=== PATIENT | female | born 1950 | race Caucasian/White ===

== ENCOUNTER → 2016-07-13 | Day surgery (SDC) | payer MEDICARE ==
[~2016-07-13] MED LIST: BUPR100T4 PO; BUPR150T3 PO; FLUO20SO3 PO; GLUCTAB PO; HYDR-3111 PO; LACTATED RINGER'S 1000 ML INJ 1,000 ML ONE; LEVO.075 PO; LEVO75TA3 PO; METF500T PO; OMEP20TA PO; PERC5TAB12 PO; PRIL20CA PO; PROP20TA3 PO; PROP40TA27 PO; PROPOFOL 500 MG/50 ML BTL IV ONE; PROZ20CA11 PO
== END | disposition home or self-care (01) ==
LOC: ESDC 07:51
PROVIDERS: ATTEND Internal Medicine Gastroenterology
DX: R19.7 Diarrhea, unspecified (principal)
CPT/HCPCS: 00740; 00810; 43239; 45380; 88305; J3010; J7120

== ENCOUNTER → 2016-10-26 | Day surgery (SDC) | payer MEDICARE ==
[~2016-10-26] MED LIST changes: +ACETAMINOPHEN 1000 MG/100 ML VIAL IV ONE; +BUPIVACAINE/EPINEPHRINE 0.5% 50 ML VIAL ONE; +BUPIVACAINE/EPINEPHRINE 0.5% PF 10 ML VIAL ONE; +HEPARIN SODIUM - IV 10,000 UNITS/10 ML VIAL ONE; +ISOSULFAN BLUE 50 MG/5 ML VIAL SQ ONE; +LACTATED RINGER'S 1,000 ML BAG IV ONE; +MIDAZOLAM HCL 2 MG/2 ML VIAL ONE; +ONDANSETRON HCL 4 MG/2 ML VIAL IV PUSH ONE; +PROPOFOL 200 MG/20 ML AMP IV ONE; -PROPOFOL 500 MG/50 ML BTL IV ONE; +SODIUM CHLORIDE 0.9% 20 ML VIAL ONE; +SODIUM CHLORIDE 0.9% INJ 10 ML ONE; +ceFAZolin 2 GM PREMIX 50 ML ONE; +oxyCODONE/ACETAMINOPHEN 5 MG/325 MG TAB ONE
--- NOTE | 2016-10-26 17:00 | TN ---
cc: LINDA DENTON DATE OF SURGERY: 10/26/2016 PRINCIPAL DIAGNOSIS Metastatic right breast cancer to an intramammary lymph node, clinical stage II. ATTENDING PHYSICIAN Linda Denton MD. PROCEDURE PERFORMED Right mastectomy, right axillary sentinel lymph node biopsy and axillary sampling, and attempted Kkpthw-A-Hlot placement in both the right and left subclavian vein. ANESTHESIA General via LMA device. INDICATION The patient is a 66-year-old female noted to have an enlarging mass in the upper outer right breast. Biopsy confirmed metastatic carcinoma in an intramammary lymph node and subsequent MRI demonstrated multifocal disease in the inferior right breast. She now presents for definitive mastectomy and sentinel lymph node biopsy. FINDINGS AT THE TIME OF SURGERY The previously biopsied lymph node was identified in the upper outer mastectomy specimen. A large dense area of suspicious breast tissue was identified in the subareolar 6 o'clock location. Three sentinel lymph nodes were removed. #1 had a count of 6008 and was 1+ blue. #2 had a count of 93 and was not blue and #3 was suspicious. Several adjacent axillary nodes were removed and sent for pathologic evaluation. Touch prep was not performed. PROCEDURE PERFORMED After informed consent was obtained and site verification was performed, the patient was brought to the radiology suite where she underwent peritumoral radionuclide injection. In our preoperative discussion and holding, she stated she had seen a medical oncologist and he had requested an [id number] to facilitate adjuvant chemotherapy. This was added to that the consent and discussed with the patient. She was then brought back to the major operating room where she was given general anesthesia via LMA device. She received a single dose of IV Ancef and sequential compression hose were placed. 4 cc of half-strength Lymphazurin were injected in the subareolar right breast and a 5-minute massage was performed. The right and left chest as well as the right arm were then prepped and draped in sterile fashion. The patient was placed in the Trendelenburg position and the left subclavian vein was accessed via percutaneous cannulation but the J wire would not advance into the central circulation. Further attempts were then abandoned and the right subclavian vein was accessed via percutaneous cannulation. The J-wire advanced but it went up the internal jugular vein and could not be manipulated into the central circulation. Further attempts were then abandoned and hemostasis was easily obtained with direct pressure in the infraclavicular sites. An elliptical incision was marked out to include a lot of redundant skin both on the breast and in the lateral axillary area. 250 cc of tumescent mixed with 30 cc of Marcaine with epi were then infiltrated circumferentially around the breast in the plane between the subcutaneous fat and anterior breast fascia using an 18 gauge needle and a 60 cc syringe. Sharp and electrocautery dissection was then performed in this same plane superiorly to the clavicle, medially to the parasternal area, inferiorly to the anterior rectus sheath, and laterally to the axillary tail of Ordonez. Further electrocautery was used to dissect the breast tissue off the pectoralis muscle. The patient did have several engorged subcutaneous veins requiring extensive cautery for hemostasis. The breast and axillary skin and subcutaneous tissue were then completely removed and oriented with the skin anterior, one short suture superiorly, and one long suture laterally. Inspection of the specimen did demonstrate that the inferior margin appeared close and this area was reexcised with a stitch on the new inferior margin. This was sent as a permanent specimen. The harmonic scalpel was then used to divide the clavipectoral fascia and the level I axilla was easily entered through the mastectomy incision. A mid level I enlarged lymph node was identified and dissected free from surrounding structures using the harmonic scalpel. The count was as noted and it was 1+ blue. An adjacent node had a count of 93 and was sent as sentinel lymph node #2. A third enlarged 2 cm lymph node in mid level I was circumferentially dissected free from surrounding structures and sent as sentinel node 3. The overlying axillary tissue was also sent as a permanent specimen. The long thoracic, thoracodorsal, intercostal brachial, and axillary vein were all identified and remained intact throughout the dissection. Good hemostasis was noted and a stab wound was created along the inferior skin flap. A 10-Portuguese channel drain was placed along the mastectomy wound and chest wall and secured to the skin with a 3-0 nylon suture. The wound was then closed using interrupted 3-0 Vicryl subcutaneous sutures and a 4-0 Monocryl subcuticular suture. Steri-Strips and a sterile dressing were applied. The patient tolerated the procedure well with an estimated blood loss of 250 cc and she was extubated in the operating room and brought to recovery room in good condition. All sponge and needle counts were correct at the conclusion of the case. MD DENICE Harris/ASIF /3:46 PM /4:36 PM
== END | disposition home or self-care (01) ==
LOC: ESDC 09:13
PROVIDERS: ATTEND Surgery
DX: C50.411 Malignant neoplasm of upper-outer quadrant of right female breast (principal)
CPT/HCPCS: 00400; 00532; 01610; 19303; 36561; 38525; 38792; 77001; 88307; C1788; J0131; J0690; J1644; J2250; J2405; J3010; J7120; Q9968

== ENCOUNTER 2016-11-10 07:21 | Day surgery (SDC) | payer MEDICARE ==
[~2016-11-10] VITALS: Ht 165.1 cm; Wt 125.5 kg
[~2016-11-10 07:21] MED LIST changes: -ACETAMINOPHEN 1000 MG/100 ML VIAL IV ONE; -BUPIVACAINE/EPINEPHRINE 0.5% 50 ML VIAL ONE; -BUPIVACAINE/EPINEPHRINE 0.5% PF 10 ML VIAL ONE; -BUPR100T4 PO; -HEPARIN SODIUM - IV 10,000 UNITS/10 ML VIAL ONE; -HYDR-3111 PO; -ISOSULFAN BLUE 50 MG/5 ML VIAL SQ ONE; -LACTATED RINGER'S 1,000 ML BAG IV ONE; -LACTATED RINGER'S 1000 ML INJ 1,000 ML ONE; -LEVO75TA3 PO; -METF500T PO; -MIDAZOLAM HCL 2 MG/2 ML VIAL ONE; -OMEP20TA PO; -ONDANSETRON HCL 4 MG/2 ML VIAL IV PUSH ONE; -PROP20TA3 PO; -PROPOFOL 200 MG/20 ML AMP IV ONE; -PROZ20CA11 PO; -SODIUM CHLORIDE 0.9% 20 ML VIAL ONE; -SODIUM CHLORIDE 0.9% INJ 10 ML ONE; -ceFAZolin 2 GM PREMIX 50 ML ONE; -oxyCODONE/ACETAMINOPHEN 5 MG/325 MG TAB ONE
[2016-11-10 07:40] VITALS: BP 181/94; PULSE 60; RESP 20; TEMP 98.2; O2SAT 93
[2016-11-10] MEDS ORDERED: OMEP20TA PO (07:51)
[2016-11-10] MEDS ORDERED: PROZ20CA11 PO (07:51)
[2016-11-10] MEDS ORDERED: METF500T PO (07:51)
[2016-11-10] MEDS ORDERED: BUPR100T4 PO (07:51)
[2016-11-10] MEDS ORDERED: LEVO75TA3 PO (07:51)
[2016-11-10] MEDS ORDERED: PROP20TA3 PO (07:51)
[2016-11-10] MEDS ORDERED: HYDR-3111 PO (07:55)
[2016-11-10] MEDS ORDERED: SODIUM CHLORIDE 0.9% 1000 ML IV SCH (08:00)
[2016-11-10] MEDS ORDERED: POVIDONE IODINE 5% (ANTISEPSIS KIT) 4 APPLICATIONS EACH NARE SCH (08:00)
[2016-11-10] MEDS ORDERED: CHLORHEXIDINE GLUCONATE 2 % 1 PACK (2 CLOTHS) TOPICAL SCH (08:00)
[2016-11-10] MEDS ORDERED: VANCOMYCIN 1000 MG/NS 250 ML - implanted port/tunneled catheter IV SCH ×2 (08:00)
[2016-11-10] MEDS ORDERED: ceFAZolin 2 GM PREMIX 50 ML - implanted port/tunneled catheter insertion IV SCH (08:00)
[2016-11-10 08:21] LABS: APTT (PATIENT) 28.2 SEC (24.3-30.1); PROTHROMBIN TIME - PATIENT 10.8 SEC (9.8-11.6)
[2016-11-10] MEDS ORDERED: LIDOCAINE 1%/EPINEPHrine 1:100,000 SOLN 20 ML VIAL ONE ×2 (08:46→08:51)
[2016-11-10] MEDS ORDERED: MIDAZOLAM HCL 5 MG/5 ML VIAL ONE (09:00)
[2016-11-10] MEDS ORDERED: HYDROmorphone HCL PF 2 MG/ML VIAL ONE (09:00)
[2016-11-10 09:55] VITALS: BP 160/81; PULSE 80; RESP 20; TEMP 98; O2SAT 92
[2016-11-10 10:10] VITALS: BP 162/95; PULSE 68; RESP 20; O2SAT 94
[2016-11-10 10:40] VITALS: BP 145/72; PULSE 82; RESP 20; O2SAT 94
[2016-11-10 11:10] VITALS: BP 150/70; PULSE 80; RESP 20; O2SAT 94
[2016-11-10] MEDS ORDERED: SODIUM CHLORIDE 0.9% FLUSH 10 ML FLUSH IVF PRN (11:15)
[2016-11-10 11:40] VITALS: BP 145/70; PULSE 82; RESP 20; O2SAT 94
--- NOTE | 2016-11-10 15:36 | RADRPT ---
EXAM DATE/TIME: 11/10/2016 09:43 [facility] COMPARISON: No previous studies available for comparison. INDICATIONS : Patient with history of right breast cancer in need of port placement. MEDICAL HISTORY : 1.Hypothyroid 2.Left AFOGNAK 3.Sleep apnea 4.DM 5.Cystocele 6.Arthritis 7.Fibromyalgia 8.Depression 9.Tremors SURGICAL HISTORY : 1.Right mastectomy 2.Right shoulder surgery 3.Right knee surgery 4.Ventral hernia 5.Stomach stapling 6.Tubal ligation ENCOUNTER: Initial ACUITY: 1 week PAIN SCORE: 0/10 FLUORO TIME: 0.4 minutes IMAGE SERIES: 1 SEDATION TIME: 40 minutes ACCESS: Right internal jugular vein SEDATION: 1.) 5 mg midazolam (Versed) IV 2.) 2 mg hydromorphone (Dilaudid) IV Prophylactic antibiotics were administered with appropriate pre-procedure timing. Vancomycin within 2 hours of procedure, Ancef (or alternative) within 1 hour of procedure. 1. 8 Kinyarwanda single lumen Angiodynamics smart power port PROCEDURE : 1. Continuous pulse oximetry and EKG monitoring. 2. Intravenous conscious sedation. 3. Ultrasound guidance for venous access. 4. Fluoroscopic guided implantable central venous port placement. The patient was placed supine. The neck was prepped in sterile fashion. Full sterile technique was u sed, including cap, mask, sterile gloves and gown, and a large sterile sheet. Hand hygiene and 2% ch lorhexidine Betadine was utilized per protocol for cutaneous antisepsis with appropriate dry time for site. The skin and subcutaneous tissues were infiltrated with local anesthetic solution. Under direct ultrasound guidance, central venous access was accomplished in the targeted vessel. The ultrasound images depicting access guidance were stored and saved to PACS for permanent record. A s ubcutaneous pocket was created using blunt dissection. The port was introduced to the pocket. The c atheter tubing was fed through a subcutaneous tunnel to the venotomy site. The catheter tubing was c ut to a suitable length and then was introduced through a valved Peel-Away sheath and positioned with catheter tubing tip at the cavo-atrial junction level. The pocket incision was closed with subcutic ular Vicryl suture. Steri-Strips were applied. The port was flushed and locked with heparin solutio n per protocol. Sterile dressing was applied to the site. The patient tolerated the procedure well. Conscious sedation was performed with the prescribed dosages and duration as above in the presence of an independent trained radiology nurse to assist in the monitoring of the patient. EKG and oximetry remained stable throughout the procedure. The patient tolerated the procedure well and there were no complications. The patient was sent to post anesthesia recovery in stable condition. CONCLUSION: Uncomplicated ultrasound and fluoroscopic guided implanted central venous port catheter placement as described in detail above. An 8 Kinyarwanda Power port was placed. Johnie Verduzco MD on November 10, 2016 at 15:34 Board Certified Radiologist. This report was verified electronically.
== END 2016-11-10 12:00 | disposition home or self-care (01) ==
LOC: HROP 07:21 → HRIP 07:22 → HROP 12:00
PROVIDERS: ATTEND Surgery
DX: C50.911 Malignant neoplasm of unspecified site of right female breast (principal); E03.9 Hypothyroidism, unspecified; E11.9 Type 2 diabetes mellitus without complications; M19.90 Unspecified osteoarthritis, unspecified site; F32.9 Major depressive disorder, single episode, unspecified; M79.7 Fibromyalgia; Z90.11 Acquired absence of right breast and nipple; Z88.5 Allergy status to narcotic agent
CPT/HCPCS: 36561; 76937; 77001; 85610; 85730; 99152; 99153; C1788; J0690; J1170; J1642; J2250; J3370; J7030; J7050

== ENCOUNTER → 2017-03-31 | Day surgery (SDC) | payer MEDICARE, OTHER ==
[~2017-03-31] MED LIST changes: +BUPIVACAINE HCL PF 0.5% 10 ML VIAL ONE; +BUPR100T4 PO; -BUPR150T3 PO; -FLUO20SO3 PO; -GLUCTAB PO; +HYDR-3111 PO; +KETOROLAC TROMETHAMINE 30 MG/ML (IVP) VIAL ONE; +LACTATED RINGER'S 1000 ML INJ 1,000 ML ONE; -LEVO.075 PO; +LEVO75TA3 PO; +METF500T PO; +MIDAZOLAM HCL 2 MG/2 ML VIAL ONE; +OMEP20TA PO; +ONDANSETRON HCL 4 MG/2 ML VIAL IV PUSH ONE; -PERC5TAB12 PO; -PRIL20CA PO; +PROP20TA3 PO; -PROP40TA27 PO; +PROPOFOL 200 MG/20 ML AMP IV ONE; +PROZ20CA11 PO; +ceFAZolin 2 GM PREMIX 50 ML ONE
--- NOTE | 2017-03-31 14:57 | TN ---
cc: LINDA DENTON DATE OF SURGERY: 03/31/2017 PREOPERATIVE DIAGNOSIS Right chest wall breast cancer recurrence. POSTOPERATIVE DIAGNOSIS Right chest wall breast cancer recurrence. PROCEDURE PERFORMED Re-excision of right chest wall nodule margins. ANESTHESIA General via LMA device. SURGEON Linda Denton. INDICATION The patient is a 67-year-old female who had a right mastectomy for stage III breast cancer. She subsequently completed adjuvant chemotherapy and developed a small subcutaneous nodule near her mastectomy scar. 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 FINDINGS At the time of surgery the previous biopsy site was identified and there was no gross evidence of residual disease. PROCEDURE After informed consent was obtained and site verification was performed, the patient was brought to the major operating room where she underwent general anesthesia via an LMA device. She was given a single dose of IV Ancef and sequential compression hose were placed. The previous excision site in the mastectomy scar was marked out and the right chest wall was prepped and draped in sterile fashion. The previous excision site was anesthetized with 0.5% Marcaine plain. An elliptical excision to include the overlying skin was then created using sharp dissection. Further sharp and electrocautery dissection was then performed circumferentially around the previous biopsy cavity and the new anterior margin was the skin. The superior margin was a short suture and the lateral margin was a single long suture. The tissue was completely removed using electrocautery dissection and sent for permanent pathologic evaluation. Hemostasis was easily obtained with electrocautery and the wound was closed using interrupted 3-0 Vicryl subcutaneous sutures and a 4-0 Monocryl subcuticular suture. Steri-Strips and a sterile dressing were applied. The patient tolerated the procedure well with an estimated blood loss of 20 cc, and she was extubated in the operating room and brought to the recovery room in good condition. MD DENICE Harris/MARIANELA /2:41 PM /2:52 PM KAY
== END | disposition home or self-care (01) ==
LOC: ESDC 11:48
PROVIDERS: ATTEND Surgery
DX: D05.11 Intraductal carcinoma in situ of right breast (principal); Z90.11 Acquired absence of right breast and nipple; Z92.21 Personal history of antineoplastic chemotherapy
CPT/HCPCS: 00400; 19120; 88307; J0690; J1885; J2250; J2405; J3010; J7120